=== PATIENT | female | born 1960 | race Caucasian/White ===

== ENCOUNTER 2018-02-01 22:52 | Inpatient (IN) | payer MEDICAID ==
[~2018-02-01] VITALS: Ht 160 cm; Wt 98.9 kg
--- NOTE | 2018-02-01 22:55 | NUR ---
TO BED 11 BIB PARAMEDICS C/O MIDSTERNAL CHEST PAIN SINCE 0. PT AAOX4 NO ACUTE DISTRESS NOTED, RESP EVEN AND UNLABORED. PLACE PT ON CARDIAC MONITORING, CONTINUOUS POX, O2@2L/NC. SKIN WARM NONDIAPHORETIC. PENDING ER MD VASQUEZ.
[2018-02-01] MEDS ORDERED: NITROGLYCERIN 0.4 MG/TAB BOTTLE SL ONE (23:30)
[2018-02-01] MEDS ORDERED: ASPIRIN 325 MG TABLET PO ONE (23:30)
[2018-02-01 23:40] LABS: BASOPHILS # (AUTO) 0.1 /CMM (0.0-0.2); BASOPHILS % (AUTO) 1.5 % (0.0-2.0); EOSINOPHILS % (AUTO) 1.6 % (0.0-6.0); HEMATOCRIT 40 % (33-45); HEMOGLOBIN 13.4 g/dL (11.5-14.8); LYMPHOCYTES # (AUTO) 3.6 /CMM (0.8-4.8); LYMPHOCYTES % (AUTO) 47.9 % (20.0-44.0); MEAN CORPUSCULAR HGB CONC 34 g/dl (31.0-36.0); MEAN CORPUSCULAR VOLUME 88 fL (82-100); MONOCYTES # (AUTO) 0.7 /CMM (0.1-1.30); MONOCYTES % (AUTO) 8.7 % (2.0-12.0); NEUTROPHILS # (AUTO) 3.1 /CMM (1.8-8.9); NEUTROPHILS % (AUTO) 40.3 % (43.0-81.0); PLATELET COUNT (AUTO) 275 /CMM (150-450); RED BLOOD CELL COUNT(AUTO) 4.52 MIL/uL (4.0-5.2); WHITE BLOOD COUNT (AUTO) 7.6 K/uL (4.3-11.0)
[2018-02-01] MEDS ORDERED: ASPIRIN 325 MG TABLET ONE (23:43)
[2018-02-01] MEDS ORDERED: NITROGLYCERIN 0.4 MG/TAB BOTTLE ONE (23:43)
--- NOTE | 2018-02-01 23:48 | NUR ---
PT MEDICATED ORDERED.
[2018-02-01 23:50] LABS: CALCIUM, SERUM 9.8 mg/dL (8.5-10.1); CARBON DIOXIDE 22 mmol/L (21-32); CHLORIDE 107 mmol/L (98-107); CREATININE 0.8 mg/dL (0.6-1.3); GLUCOSE 103 mg/dL (74-106); POTASSIUM 3.4 mmol/L (3.5-5.1); SODIUM SERUM 142 mmol/L (136-145); UREA NITROGEN, BLOOD 13 mg/dL (7-18)
[2018-02-01 23:55] LABS: INR 1.04 (0.87-1.13)
[2018-02-01 23:57] LABS: TROPONIN I < 0.017 ng/mL (0.00-0.056)
[2018-02-02 00:03] LABS: B-TYPE NATRIURETIC PEPTIDE 119 PG/ML (0-125)
--- NOTE | 2018-02-02 01:16 | NUR ---
er md spoke to dr. fuentes regarding pt admission.
--- NOTE | 2018-02-02 01:21 | NUR ---
report called to telesales advisor arvi. will transport pt via acls protocol.
[2018-02-02 01:50] VITALS: BP 169/75
--- NOTE | 2018-02-02 01:50 | NUR ---
RN NOTES RECEIVED PATIENT FROM ER FOR DX CHEST PAIN. AO X 3, ABLE TO MAKE NEED KNOWN. NO ACUTE DISTRESS NOTED. MONITORED FOR PAIN. SKIN INTACT. TELE READING SR HR 78. IV SITE PATENT, INTACT; FLUSHED. SAFETY REMINDERS GIVEN. ORIENTED TO ROOM AND UNIT. ON LOW BED WITH BILATERAL UPPER SIDE RAILS UP. CALL PARNELL WITHIN EASY REACH. WILL CONTINUE TO MONITOR. WILL CARRY OUT ORDERS FROM DR. CRESPO.
[2018-02-02] MEDS ORDERED: LISINOPRIL (20MG) 20 MG TABLET PO SCH ×2 (02:00→09:00)
[2018-02-02] MEDS ORDERED: ZOLPIDEM TARTRATE 5 MG TABLET PO PRN (02:00)
[2018-02-02] MEDS ORDERED: ACETAMINOPHEN 325 MG TABLET PO PRN (02:00)
[2018-02-02 04:00] VITALS: BP 162/115
[2018-02-02 04:05] LABS: BASOPHILS % (AUTO) 0.7 % (0.0-2.0); EOSINOPHILS % (AUTO) 1.6 % (0.0-6.0); HEMATOCRIT 39 % (33-45); HEMOGLOBIN 13.2 g/dL (11.5-14.8); LYMPHOCYTES # (AUTO) 3.2 /CMM (0.8-4.8); LYMPHOCYTES % (AUTO) 49.2 % (20.0-44.0); MEAN CORPUSCULAR HGB CONC 34 g/dl (31.0-36.0); MEAN CORPUSCULAR VOLUME 87 fL (82-100); MONOCYTES # (AUTO) 0.4 /CMM (0.1-1.30); MONOCYTES % (AUTO) 6.8 % (2.0-12.0); NEUTROPHILS # (AUTO) 2.7 /CMM (1.8-8.9); NEUTROPHILS % (AUTO) 41.7 % (43.0-81.0); PLATELET COUNT (AUTO) 285 /CMM (150-450); RDW COEFFICIENT OF VARIATION 13.9 (11.5-15.0); RED BLOOD CELL COUNT(AUTO) 4.47 MIL/uL (4.0-5.2); WHITE BLOOD COUNT (AUTO) 6.6 K/uL (4.3-11.0)
[2018-02-02 04:16] LABS: CALCIUM, SERUM 9.3 mg/dL (8.5-10.1); CREATININE 0.6 mg/dL (0.6-1.3); POTASSIUM 3.4 mmol/L (3.5-5.1)
--- NOTE | 2018-02-02 06:30 | NUR ---
RN NOTES PATIENT ASLEEP, EASILY AROUSABLE. RESPIRATIONS EVEN. NO SIGNS OF PAIN NOTED. DUE MEDS GIVEN WITH NO ASE NOTED. NEEDS ATTENDED. KEPT CLEAN AND DRY. SAFETY PRECAUTIONS AND COMFORT MEASURES IN PLACE. WILL GIVE REPORT TO DAY SHIFT FOR CONTINUITY OF CARE.
--- NOTE | 2018-02-02 07:30 | NUR ---
RN NOTES RECEIVED PATIENT IN BED ALERT, AWAKE, ORIENTED X4 WITH BREATHING NORMAL, EVEN AND UNLABORED. NO SOB NOTED. NO ACUTE DISTRESS NOTED. DENIES ANY PAIN OR DISCOMFORT. TELE MONITOR REVEALS SR, HR=78. IV RAC IS PATENT AND INTACT, NO INFILTRATION NOTED. BOWEL SOUND PRESENT. PULSES PRESENT. SAFETY MEASURE OBSERVED. ALL NEEDS ATTENDED. CALL LIGHT WITH IN REACH. WILL CONT TO MONITOR.
[2018-02-02 08:00] VITALS: BP 144/83
[2018-02-02] MEDS ORDERED: FENO145T35 PO (08:25)
[2018-02-02] MEDS ORDERED: ATOR20TA PO (08:25)
[2018-02-02] MEDS ORDERED: FOLI1TAB16 PO (08:25)
[2018-02-02] MEDS ORDERED: ASPI-1152 PO ×2 (08:25→11:31)
[2018-02-02] MEDS ORDERED: RANI150T8 PO (08:25)
[2018-02-02] MEDS ORDERED: PIOG15TA8 PO (08:25)
[2018-02-02] MEDS ORDERED: DILT120C51 PO (08:25)
[2018-02-02] MEDS ORDERED: POTASSIUM CHLORIDE 20 MEQ TAB.PRT.SR PO ONE (09:00)
[2018-02-02] MEDS ORDERED: AMLODIPINE BESYLATE 10 MG TABLET PO SCH (09:00)
[2018-02-02] MEDS ORDERED: METOPROLOL TARTRATE 25 MG TABLET PO SCH ×2 (09:00→21:00)
[2018-02-02] MEDS ORDERED: ASPIRIN EC 81 MG TABLET.DR PO SCH (09:00)
[2018-02-02] MEDS ORDERED: PANTOPRAZOLE 40 MG TABLET.DR PO SCH (09:00)
[2018-02-02] MEDS ORDERED: PROP40TA7 PO (11:33)
[2018-02-02] MEDS ORDERED: AMLO10TA6 PO (11:33)
[2018-02-02] MEDS ORDERED: SERT50TA PO (11:33)
[2018-02-02] MEDS ORDERED: PYRI50TA9 PO (11:33)
[2018-02-02 12:00] VITALS: BP 147/91
[2018-02-02] MEDS ORDERED: REGADENOSON 0.4 MG/5 ML DISP.SYRIN IVP ONE (12:30)
[2018-02-02 16:00] VITALS: BP 139/89
--- NOTE | 2018-02-02 18:00 | NUR ---
RN NOTES RELAYED [place] RESULTS TO DR CRESPO WITH ORDER TO D/C PATIENT. ORDER NOTES AND CARRIED OUT.
--- NOTE | 2018-02-02 18:25 | NUR ---
RN NOTES PATIENT DISCHARGED IN STABLE CONDITION WITH BREATHING NORMAL, EVEN AND UNLABORED. DENIES ANY PAIN OR DISCOMFORT. DISCHARGE INSTRUCTION GIVEN WITH FEEDBACK. UNDERSTOOD WELL. PATIENT LEFT WITH DAUGHTER IN STABLE CONDITION.
== END 2018-02-02 18:36 | disposition home or self-care (01) | DRG 203 ==
LOC: ER 22:56 → EDSEX 22:56 → ER 02-02 01:23 → TELE1 02-02 01:52 → MEDSG1 02-02 12:34
PROVIDERS: ADMIT Internal Medicine; ATTEND Internal Medicine
DX: R07.89 Other chest pain (principal); E66.01 Morbid (severe) obesity due to excess calories; I10 Essential (primary) hypertension; E11.9 Type 2 diabetes mellitus without complications; E78.5 Hyperlipidemia, unspecified; E87.6 Hypokalemia; Z82.49 Family history of ischemic heart disease and other diseases of the circulatory system; G47.33 Obstructive sleep apnea (adult) (pediatric); Z68.38 Body mass index [BMI] 38.0-38.9, adult
CPT/HCPCS: 36415; 71045-TC; 80048-TC; 80061-TC; 83880; 84484-TC; 85025-TC; 85730-TC; 87081-TC; 93307-TC; A4606; A9502; J2785; Z7610

== ENCOUNTER 2019-01-05 19:06 | Emergency (ER) | payer MEDICAID ==
[~2019-01-05] VITALS: Ht 170.2 cm; Wt 98.0 kg
[~2019-01-05 19:06] MED LIST: AMLO10TA7 PO; ASPI-1152 PO; ATOR20TA PO; DILT120C51 PO; FENO145T35 PO; FOLI1TAB16 PO; PIOG15TA8 PO; PROP40TA7 PO; PYRI50TA9 PO; RANI150T8 PO; SERT50TA PO
--- NOTE | 2019-01-05 19:21 | NUR ---
URINE COLLECTED AND SENT TO LAB
--- NOTE | 2019-01-05 19:25 | NUR ---
BIBDAUGHTER C/O GENERALIZED ABDOMINAL PAIN X1 DAY. ALSO C/O NAUSEA. PT DENIES SOB, CHEST PAIN, DYSURIA, DARK STOOL. PT AAOX4. APPEARS UNCOMFORTABLE. VITAL SIGNS STABLE. PLACED IN GOWN AND ON MONITOR, WILL CONTINUE TO MONITOR. DAUGHTER AT BEDSIDE
--- NOTE | 2019-01-05 19:25 | NUR ---
Note sandra in ED - 01/05/19 at 2200 by JAYDEN WASHROOM CLEANER AT BEDSIDE FOR BLOOD DRAW. PT REFUSED. AWARE
--- NOTE | 2019-01-05 19:25 | NUR ---
NADJA HRIS MANAGER AT BEDSIDE FOR EVALUATION
[2019-01-05] MEDS ORDERED: ONDANSETRON HCL/PF 4 MG/2 ML VIAL ONE (19:38)
[2019-01-05] MEDS ORDERED: HYDROMORPHONE 1 MG/1 ML DISP.SYRIN ONE (19:38)
--- NOTE | 2019-01-05 19:46 | NUR ---
IV INITIATED LEFT AC 18G. LABS DRAWN FROM SITE. RESEARCH TECHNICIAN AT BEDSIDE FOR COLLECTION. IV INTACT AND PATENT, PLACED ON SALINE LOCK
[2019-01-05 19:52] LABS: BASOPHILS % (AUTO) 0.5 % (0.0-2.0); HEMATOCRIT 40 % (33-45); HEMOGLOBIN 13.5 g/dL (11.5-14.8); LYMPHOCYTES # (AUTO) 3.8 /CMM (0.8-4.8); MEAN CORPUSCULAR HGB CONC 33 g/dl (31.0-36.0); MEAN CORPUSCULAR VOLUME 89 fL (82-100); MONOCYTES # (AUTO) 0.7 /CMM (0.1-1.30); MONOCYTES % (AUTO) 8.1 % (2.0-12.0); NEUTROPHILS # (AUTO) 4.4 /CMM (1.8-8.9); NEUTROPHILS % (AUTO) 48.4 % (43.0-81.0); PLATELET COUNT (AUTO) 325 /CMM (150-450); RED BLOOD CELL COUNT(AUTO) 4.54 MIL/uL (4.0-5.2)
[2019-01-05 19:54] LABS: APPEARANCE,URINE Clear (CLEAR); BILIRUBIN,URINE Negative (NEGATIVE); BLOOD, URINE Negative Ery/uL (NEGATIVE); COLOR,URINE Yellow (YELLOW); KETONES,URINE Negative (NEGATIVE); LEUKOCYTE ESTERASE ,URINE Trace (NEGATIVE); NITRITE, URINE Negative (NEGATIVE); PH,URINE 6.5 (5.0-8.0); PROTEIN,URINE Negative (NEGATIVE); UGLUCOSE Negative (NEGATIVE); UROBILINOGEN,URINE 0.2 EU/dL (0.2)
[2019-01-05 20:00] LABS: CALCIUM, SERUM 10.5 mg/dL (8.5-10.1); CARBON DIOXIDE 28 mmol/L (21-32); CHLORIDE 105 mmol/L (98-107); CREATININE 0.6 mg/dL (0.6-1.3); GLUCOSE 92 mg/dL (74-106); SODIUM SERUM 138 mmol/L (136-145); UREA NITROGEN, BLOOD 14 mg/dL (7-18)
[2019-01-05] MEDS ORDERED: IV NS 0.9% 1,000 ML BAG IV ONE (20:00)
[2019-01-05] MEDS ORDERED: ONDANSETRON HCL/PF 4 MG/2 ML VIAL IVP ONE (20:00)
[2019-01-05] MEDS ORDERED: HYDROMORPHONE INJ 2 MG/ML DISP.SYRIN IV ONE (20:00)
[2019-01-05 20:05] LABS: ALANINE AMINOTRANSFERASE 35 U/L (12-78); ALBUMIN 4.2 g/dL (3.4-5.0); ALKALINE PHOSPHATASE 68 U/L (46-116); ASPARTATE AMINOTRANSFERASE 20 U/L (15-37); BILIRUBIN,DIRECT 0.1 mg/dL (0.0-0.2); BILIRUBIN,TOTAL 0.2 mg/dL (0.2-1.0); LIPASE 239 U/L (73-393); TOTAL PROTEIN, SERUM 7.9 g/dL (6.4-8.2)
[2019-01-05] MEDS ORDERED: IOHEXOL-300 100 ML VIAL IV ONE (20:19)
[2019-01-05] MEDS ORDERED: CT SWABBABLE VALVE TRANS SET 1 EA INFUS.SET MC ONE (20:19)
[2019-01-05] MEDS ORDERED: IV NS 0.9% 250 ML IV ONE (20:19)
[2019-01-05 20:26] LABS: BACTERIA,URINE None seen /HPF (None Seen); RBC,URINE 0-2 /HPF (0-2); SQUAMOUS EPITHELIAL CELL,UR Moderate /HPF (None Seen)
--- NOTE | 2019-01-05 20:26 | NUR ---
BROUGHT BY RADIOLOGY FOR CT
--- NOTE | 2019-01-05 20:37 | NUR ---
PT RETURNED FROM CT
--- NOTE | 2019-01-05 22:00 | NUR ---
Patient discharged to home in stable condition. Written and verbal after care instructions given. Patient verbalizes understanding of instruction. IV removed. Catheter intact and site benign. Pressure and 4x4 applied to site. No bleeding noted. Pt ambulatory with a steady gait
[2019-01-05 22:07] VITALS: BP 128/74
== END 2019-01-05 22:08 | disposition home or self-care (01) ==
LOC: ER 19:14
DX: N13.2 Hydronephrosis with renal and ureteral calculous obstruction (principal); I11.9 Hypertensive heart disease without heart failure; Z79.82 Long term (current) use of aspirin; Z90.89 Acquired absence of other organs; Z98.49 Cataract extraction status, unspecified eye
CPT/HCPCS: 36415; 71045; 74177; 80048; 80076; 81001; 83690; 84484; 85025; 85730; 93005; 96374; 96375; 99284; A4606; J1170; J2405; J7030; J7050; Q9967; 81000-TC

== ENCOUNTER 2019-09-05 13:10 | Emergency (ER) | payer MEDICAID ==
[~2019-09-05] VITALS: Ht 167.6 cm; Wt 72.6 kg
[~2019-09-05 13:10] MED LIST changes: +PYRI50TA12 PO; -PYRI50TA9 PO
--- NOTE | 2019-09-05 13:24 | NUR ---
"BIBDAUGHTER, C/O RLQ PAIN 08/12 PS, x 10 DAYS, +NAUSEA, -DIARRHEA" PT AAOX4, -SOB, NAD NOTED, VSS ,PENDING MD VASQUEZ
[2019-09-05] MEDS ORDERED: ONDANSETRON HCL/PF 4 MG/2 ML VIAL ONE (13:50)
[2019-09-05] MEDS ORDERED: MORPHINE SULFATE INJ 4 MG/ML DISP.SYRIN ONE (13:51)
[2019-09-05 13:53] LABS: BASOPHILS # (AUTO) 0.1 /CMM (0.0-0.2); HEMATOCRIT 41 % (33-45); HEMOGLOBIN 13.5 g/dL (11.5-14.8); LYMPHOCYTES # (AUTO) 2.8 /CMM (0.8-4.8); MEAN CORPUSCULAR HGB CONC 33 g/dl (31.0-36.0); MEAN CORPUSCULAR VOLUME 89 fL (82-100); MONOCYTES # (AUTO) 0.5 /CMM (0.1-1.30); NEUTROPHILS # (AUTO) 3.8 /CMM (1.8-8.9); PLATELET COUNT (AUTO) 298 /CMM (150-450); RED BLOOD CELL COUNT(AUTO) 4.61 MIL/uL (4.0-5.2); WHITE BLOOD COUNT (AUTO) 7.3 K/uL (4.3-11.0)
[2019-09-05] MEDS ORDERED: ONDANSETRON HCL/PF 4 MG/2 ML VIAL IVP ONE (14:00)
[2019-09-05] MEDS ORDERED: MORPHINE SULFATE INJ 2 MG/ML DISP.SYRIN IV ONE (14:00)
[2019-09-05] MEDS ORDERED: IV NS 0.9% 500 ML BAG IV ONE (14:00)
[2019-09-05 14:09] LABS: ALBUMIN 4.1 g/dL (3.4-5.0); BILIRUBIN,DIRECT 0.1 mg/dL (0.0-0.2); BILIRUBIN,TOTAL 0.3 mg/dL (0.2-1.0); CALCIUM, SERUM 9.8 mg/dL (8.5-10.1); CREATININE 0.6 mg/dL (0.6-1.3); POTASSIUM 3.5 mmol/L (3.5-5.1); TOTAL PROTEIN, SERUM 7.5 g/dL (6.4-8.2)
[2019-09-05 14:52] LABS: APPEARANCE,URINE Clear (CLEAR); BILIRUBIN,URINE Negative (NEGATIVE); BLOOD, URINE Moderate Ery/uL (NEGATIVE); COLOR,URINE Yellow (YELLOW); KETONES,URINE Negative (NEGATIVE); LEUKOCYTE ESTERASE ,URINE Trace (NEGATIVE); NITRITE, URINE Negative (NEGATIVE); PH,URINE 6.5 (5.0-8.0); PROTEIN,URINE Negative (NEGATIVE); UGLUCOSE Negative (NEGATIVE); UROBILINOGEN,URINE 0.2 EU/dL (0.2)
[2019-09-05 14:56] LABS: BACTERIA,URINE Rare /HPF (None Seen); CALCIUM OXALATE CRYSTALS,UR Few /HPF (None Seen); SQUAMOUS EPITHELIAL CELL,UR Few /HPF (None Seen)
[2019-09-05 16:00] VITALS: BP 139/80
--- NOTE | 2019-09-05 16:13 | NUR ---
Patient discharged to home in stable condition. Written and verbal after care instructions given. Patient verbalizes understanding of instruction. IV removed. Catheter intact and site benign. Pressure and 4x4 applied to site. No bleeding noted.
== END 2019-09-05 16:13 | disposition home or self-care (01) ==
LOC: ER 13:16
DX: K43.9 Ventral hernia without obstruction or gangrene (principal); N39.0 Urinary tract infection, site not specified; I10 Essential (primary) hypertension; Z87.442 Personal history of urinary calculi; Z98.890 Other specified postprocedural states; Z79.82 Long term (current) use of aspirin; Z79.899 Other long term (current) drug therapy
CPT/HCPCS: 36415; 74176; 80048; 80076; 81001; 83690; 85025; 96374; 96375; 99284; J2270; J2405; J7040; 81000-TC